=== PATIENT | male | born 1940 | race Caucasian/White ===

== ENCOUNTER → 2016-06-14 | Outpatient (CLI) | payer MEDICARE, BC | LOC: RT 14:28 | DX: I10 Essential (primary) hypertension (principal) | CPT/HCPCS: 93005 ==

== ENCOUNTER → 2016-11-14 | Outpatient (CLI) | payer MEDICARE, BC | LOC: LBRF 15:05 | DX: N39.0 Urinary tract infection, site not specified (principal) | CPT/HCPCS: 87077; 87086; 87186 ==

== ENCOUNTER → 2020-05-19 | Outpatient (CLI) | payer MEDICARE, BC ==
[~2020-05-19] MED LIST: BACTRIM DS TAB1 EACH PO; BENTYL 10MG CAP10 MG PO; COZAAR25 MG PO; ECOTRIN325 MG PO; ELIQUIS 5 MG TAB5 MG PO; FERROUS SULFAT325 M2 PO; FISH OIL 1,0001 EACH PO; GABAPENTIN400 MG PO; GLUCOPHAGE1000 MG PO; HYDROCHLOROTHIA25 MG PO; JANUVIA100 MG PO; LEVAQUIN500 MG PO; MEDROL4 MG PO; MULTIPLE VITAM1 EAC1 PO; OSTEO BI-FLEX1 EAC1 PO; PLAVIX 75 MG TA75 MG PO; PRAVACHOL20 MG PO; TOPROL XL100 MG PO; VITAMIN D32000 UNIT PO
== END ==
LOC: EXRD 14:48
DX: J44.9 Chronic obstructive pulmonary disease, unspecified (principal); J98.4 Other disorders of lung
CPT/HCPCS: 71046

== ENCOUNTER 2020-09-19 17:32 | Emergency (ER) | payer MEDICARE, BC ==
[~2020-09-19 17:32] MED LIST changes: -BACTRIM DS TAB1 EACH PO
[2020-09-19 18:27] LABS: HEMOGLOBIN 14.7 gm/dl (14.0-17.5); RED BLOOD COUNT 4.89 M/UL (4.20-5.50); WHITE BLOOD COUNT 6.8 K/UL (4.5-11.0)
[2020-09-19 18:46] LABS: BUN/CREATININE RATIO 13 (0-10)
[2020-09-19] MEDS ORDERED: BACTRIM DS TAB1 EACH PO (19:23)
== END 2020-09-19 20:09 | disposition home or self-care (01) ==
LOC: ER1 17:32
PROVIDERS: Emergency Medicine
DX: N39.0 Urinary tract infection, site not specified (principal); I10 Essential (primary) hypertension; E11.9 Type 2 diabetes mellitus without complications; E78.5 Hyperlipidemia, unspecified; J44.9 Chronic obstructive pulmonary disease, unspecified; Z88.8 Allergy status to other drugs, medicaments and biological substances
CPT/HCPCS: 80053; 81001; 85025; 87077; 87086; 87186; 96372; 99283; J0696

== ENCOUNTER → 2020-09-29 | Outpatient (CLI) | payer MEDICARE, BC ==
[~2020-09-29] MED LIST changes: +BACTRIM DS TAB1 EACH PO
== END ==
LOC: HEART 5 14:46
DX: J44.9 Chronic obstructive pulmonary disease, unspecified (principal)
CPT/HCPCS: 94060; 94729

== ENCOUNTER → 2020-10-24 | Outpatient (CLI) | payer MEDICARE, BC | LOC: EXRD 10-10 11:00 | DX: I73.9 Peripheral vascular disease, unspecified (principal) | CPT/HCPCS: 93926 ==

== ENCOUNTER 2020-12-31 05:56 | Inpatient (IN) | payer MEDICARE, BC ==
[~2020-12-31] VITALS: Ht 190.5 cm; Wt 129.3 kg
[2020-12-31 06:34] LABS: RED BLOOD COUNT 5.24 M/UL (4.20-5.50); WHITE BLOOD COUNT 8.2 K/UL (4.5-11.0)
[2020-12-31 08:10] LABS: BUN/CREATININE RATIO 16 (0-10)
[2020-12-31] MEDS ORDERED: CLARITIN 10MG T10 MG PO (10:34)
[2020-12-31] MEDS ORDERED: MONTELUKAST SOD10 MG PO (10:34)
[2020-12-31] MEDS ORDERED: GABAPENTIN300 MG PO (10:35)
[2020-12-31] MEDS ORDERED: FISH OIL 1,0001 EAC5 PO (10:36)
[2020-12-31] MEDS ORDERED: COZAAR100 MG PO (10:36)
[2020-12-31] MEDS ORDERED: PROTONIX 40 MG40 M1 PO (10:37)
[2020-12-31] MEDS ORDERED: BENTYL 10MG CAP10 MG PO (10:39)
[2020-12-31] MEDS ORDERED: MULTI-VITAMIN1 EACH PO (10:40)
[2020-12-31] MEDS ORDERED: KENALOG CREAM 015 GM TOP (10:41)
[2020-12-31] MEDS ORDERED: KETOCONAZOLE120 ML TOP (10:42)
[2020-12-31] MEDS ORDERED: NASONEX17 GM (10:43)
[2020-12-31] MEDS ORDERED: CLOPIDOGREL75 MG PO (10:43)
[2020-12-31] MEDS ORDERED: VITAMIN D350 MCG PO (10:45)
[2020-12-31] MEDS ORDERED: MIRALAX17 GM PO (10:46)
[2020-12-31] MEDS ORDERED: TRULICITY1.5 MG/0.5 SQ (10:48)
[2020-12-31] MEDS ORDERED: ANORO ELLIPTA1 EACH INH (10:50)
[2020-12-31] MEDS ORDERED: OSTEO BI-FLEX1 EAC1 PO (11:02)
[2021-01-01 08:33] LABS: HEMOGLOBIN 14.5 gm/dl (14.0-17.5); RED BLOOD COUNT 4.91 M/UL (4.20-5.50)
[2021-01-01 09:17] LABS: BUN/CREATININE RATIO 16 (0-10)
--- NOTE | 2021-01-01 09:59 | NUR ---
PATIENT WENT DOWN FOR STRESS TEST, BUT HAD EPISODE OF [employer]. CAME TO FLOOR WITH TEST INCOMPLETE. CHAITANYA QUEVEDO ROUNDED AFTER PATIENT RETURNED TO FLOOR AND REVIEWED CHART, PATIENT WILL HAVE STRESS TEST ON SATURDAY.
[2021-01-02 03:02] LABS: HEMOGLOBIN 14.2 gm/dl (14.0-17.5); RED BLOOD COUNT 4.75 M/UL (4.20-5.50); WHITE BLOOD COUNT 7.6 K/UL (4.5-11.0)
[2021-01-02 03:31] LABS: BUN/CREATININE RATIO 17 (0-10)
[2021-01-03 03:05] LABS: RED BLOOD COUNT 4.71 M/UL (4.20-5.50); WHITE BLOOD COUNT 8.7 K/UL (4.5-11.0)
[2021-01-03 03:27] LABS: BUN/CREATININE RATIO 15 (0-10)
== END 2021-01-04 13:58 | disposition short-term general hospital (02) | DRG 282 ==
LOC: ER1 05:56 → CDU 08:33 → PROG CARE 08:33 → MED SURG 4 09:23 → PROG CARE 01-01 13:10
PROVIDERS: Nurse Practitioner; Physician Assistant Medical; ADMIT Internal Medicine
PROC: 4A023N8 Measurement of Cardiac Sampling and Pressure, Bilateral, Percutaneous Approach (ICD-10-PCS; principal; 2021-01-02)
PROC: B2111ZZ Fluoroscopy of Multiple Coronary Arteries using Low Osmolar Contrast (ICD-10-PCS; 2021-01-02)
PROC: B2161ZZ Fluoroscopy of Right and Left Heart using Low Osmolar Contrast (ICD-10-PCS; 2021-01-02)
DX: I21.4 Non-ST elevation (NSTEMI) myocardial infarction (principal); I25.10 Atherosclerotic heart disease of native coronary artery without angina pectoris; K21.9 Gastro-esophageal reflux disease without esophagitis; I10 Essential (primary) hypertension; E11.51 Type 2 diabetes mellitus with diabetic peripheral angiopathy without gangrene; Z20.822 Contact with and (suspected) exposure to COVID-19; J44.9 Chronic obstructive pulmonary disease, unspecified; G47.33 Obstructive sleep apnea (adult) (pediatric); E78.5 Hyperlipidemia, unspecified; I49.3 Ventricular premature depolarization; E66.01 Morbid (severe) obesity due to excess calories; D50.9 Iron deficiency anemia, unspecified; I73.9 Peripheral vascular disease, unspecified; Z86.718 Personal history of other venous thrombosis and embolism; Z79.899 Other long term (current) drug therapy; Z87.891 Personal history of nicotine dependence; Z82.49 Family history of ischemic heart disease and other diseases of the circulatory system; Z83.3 Family history of diabetes mellitus; Z82.3 Family history of stroke; Z88.8 Allergy status to other drugs, medicaments and biological substances; Z79.82 Long term (current) use of aspirin; Z99.81 Dependence on supplemental oxygen; Z68.35 Body mass index [BMI] 35.0-35.9, adult
CPT/HCPCS: ECHO; 36415; 71045; 80048; 80053; 81001; 82550; 82553; 82962; 83735; 83874; 83880; 84439; 84443; 84484; 85025; 85027; 85610; 85730; 93005; 93306; 93571; 94640; 94664; 94760; 94761; 99152; 99153; 99285; C1769; C1887; C1894; G0378; J0153; J1644; J2250; J2785; J3010; J7040; Q9967; U0002

== ENCOUNTER → 2021-03-07 | Outpatient (CLI) | payer MEDICARE, BC ==
[~2021-03-07] MED LIST changes: +ANORO ELLIPTA1 EACH INH; +CLARITIN 10MG T10 MG PO; +CLOPIDOGREL75 MG PO; +COZAAR100 MG PO; +FISH OIL 1,0001 EAC5 PO; +GABAPENTIN300 MG PO; +KENALOG CREAM 015 GM TOP; +KETOCONAZOLE120 ML TOP; +MIRALAX17 GM PO; +MONTELUKAST SOD10 MG PO; +MULTI-VITAMIN1 EACH PO; +NASONEX17 GM; +PROTONIX 40 MG40 M1 PO; +TRULICITY1.5 MG/0.5 SQ; +VITAMIN D350 MCG PO
== END ==
LOC: EXRD 15:29
DX: Z00.00 Encounter for general adult medical examination without abnormal findings (principal); R91.8 Other nonspecific abnormal finding of lung field
CPT/HCPCS: 71046

== ENCOUNTER → 2021-04-12 | Outpatient (CLI) | payer MEDICARE, BC | LOC: EXRD 03-31 11:30 | DX: Z53.9 Procedure and treatment not carried out, unspecified reason (principal) | CPT/HCPCS: 76857 ==

== ENCOUNTER → 2021-05-08 | Outpatient (CLI) | payer MEDICARE, BC | LOC: ECHO 05-02 09:00 | DX: I25.10 Atherosclerotic heart disease of native coronary artery without angina pectoris (principal); R07.9 Chest pain, unspecified; I08.1 Rheumatic disorders of both mitral and tricuspid valves; I27.20 Pulmonary hypertension, unspecified | CPT/HCPCS: ECHO; 93306 ==

== ENCOUNTER → 2021-07-26 | Outpatient (CLI) | payer MEDICARE, BC | LOC: EXRD 10:25 | DX: J44.9 Chronic obstructive pulmonary disease, unspecified (principal); J90 Pleural effusion, not elsewhere classified | CPT/HCPCS: 71046 ==

== ENCOUNTER → 2021-07-27 | Outpatient (CLI) | payer MEDICARE, BC | LOC: HEART 5 11:08 | DX: J44.9 Chronic obstructive pulmonary disease, unspecified (principal) | CPT/HCPCS: 94060; 94729 ==